=== PATIENT | female | born 1950 | race Caucasian/White ===

== ENCOUNTER → 2017-08-26 | Outpatient (CLI) | payer BC ==
[~2017-08-26] MED LIST: HYDR25TA9 PO; IBUP200C9 PO; LOSA50TA6 PO; PROG200C2 PO; TEST1.25 TD
--- NOTE | 2017-08-27 14:16 | KCIC ---
DATE: 08/26/2017 EXAM: MAMMO ADIEL SCREENING BILATERAL HISTORY: Routine screening COMPARISON: 08/23/2016 FINDINGS: Breast Density: SCATTERED The breast parenchyma shows scattered fibroglandular densities. Breast parenchyma level B. Small asymmetry identified in the left outer breast at around 4:00 best seen on the cc view and left inner breast best seen on the MLO view at around 10:00 position anteriorly. IMPRESSION: Small asymmetries identified in the left outer and left inner breast. Recommend ultrasound left breast. BI-RADS CATEGORY: 0 INCOMPLETE: NEEDS ADDITIONAL IMAGING EVALUATION AND/OR PRIOR MAMMOGRAMS FOR COMPARISON. RECOMMENDED FOLLOW-UP: ADD ADDITIONAL IMAGING PQRS compliance statement: Patient information was entered into a reminder system with a target due date immediate recall for the next mammogram. Mammography is a sensitive method for finding small breast cancers, but it does not detect them all and is not a substitute for careful clinical examination. A negative mammogram does not negate a clinically suspicious finding and should not result in delay in biopsying a clinically suspicious abnormality. "Our facility is accredited by the [employer] Mammography [employer]."
== END | disposition home or self-care (01) ==
LOC: KCIC MAMMO 14:56
PROVIDERS: ATTEND Internal Medicine
DX: Z12.31 Encounter for screening mammogram for malignant neoplasm of breast (principal)
CPT/HCPCS: 77063; G0202; 77067

== ENCOUNTER → 2017-09-02 | Outpatient (CLI) | payer BC ==
--- NOTE | 2017-09-02 13:48 | RAD ---
Ultrasound of the left breast Indication: Callback for abnormality seen on screening mammogram from 08/26/2017 Technique: Grayscale and color Doppler ultrasound images of the left breast from 3:00 position 2 12:00 position. Comparison: Previous screening mammogram from 08/26/2017 Findings: There are no solid or cystic lesions in the breast from 3:00 position to 12:00 position that corresponds to previously seen mammographic abnormality.. Dense fibroglandular tissues noted. Impression: No solid or cystic lesions in the imaged left breast. Previously seen mammographic abnormality may represent small interparenchymal lymph nodes not seen on today's study. Left breast ultrasound follow-up in 6 months recommended BI-RADS 3: Probably benign. Follow-up left breast ultrasound 6 months.
== END | disposition home or self-care (01) ==
LOC: KCIC US 12:11
PROVIDERS: ATTEND Internal Medicine
DX: R92.8 Other abnormal and inconclusive findings on diagnostic imaging of breast (principal)
CPT/HCPCS: 76641

== ENCOUNTER → 2018-03-03 | Outpatient (CLI) | payer BC | END | disposition home or self-care (01) | LOC: KCIC US 11:12 | DX: N63.20 Unspecified lump in the left breast, unspecified quadrant (principal) | CPT/HCPCS: 76641; 77065; G0279 ==

== ENCOUNTER → 2018-08-28 | Outpatient (CLI) | payer BC ==
[~2018-08-28] MED LIST changes: -LOSA50TA6 PO; +LOSA50TA7 PO
--- NOTE | 2018-08-28 14:08 | KCIC ---
Bilateral diagnostic digital mammograms with 3D Tomosynthesis: Reason for examination: Follow-up left breast nodule. Comparison is made to previous studies dated 03/03/2018 and 08/26/2017. Bilateral mammograms in CC and oblique projections were obtained with 2-D imaging and 3-D tomosynthesis imaging on a Siemens Inspiration unit and reviewed on the workstation. Interpretation was made with the benefit of CAD. The skin and nipples show no abnormalities. No abnormal axillary lymph nodes are seen. The breast parenchyma shows scattered fibroglandular density. (Breast density: Category B.) There continues to be a small nodular parenchymal density at approximately the 4:00 B position of the left breast which appears to be stable. There is also some nodularity suggested at the 6:00 B position of the right breast and 2:00 B position of the right breast. This is unchanged. There are no new dominant masses, suspicious calcifications or architectural distortions. Impression: Nodular asymmetries bilaterally without definite change. Ultrasound to follow. BI-RADS Category 0: Incomplete. Needs additional imaging evaluation. Bilateral breast ultrasound: Comparison is made to previous studies of the left breast dated 03/03/2018 and 09/02/2017. There is a small 6.5 mm fibrocystic lesion in the left breast at the 4:00 position 4 cm from the nipple which would appear to correspond with the area of mammographic concern. No other cystic or solid lesions are seen in the left breast. No abnormal appearing lymph nodes are seen in the left axilla. There is a small hypoechoic 4.4 mm fibrocystic type lesion at the 2:00 position 4.5 cm from the nipple. There is a small 4 mm fibrocystic lesion at the 6:00 position 6 cm from the nipple. No other cystic or solid lesions are seen. No abnormal appearing lymph nodes are seen in the right axilla. IMPRESSION: Benign-appearing fibrocystic type lesions at the 4:00 B position of the left breast and at the 2:00 B and 6:00 B positions of the right breast. Recommend 6 month follow-up with ultrasound. BI-RADS Category 3: Probably Benign. "Our facility is accredited by the [employer] Mammography Program." This patient's information has been entered into a reminder system for the patient to be notified with the results of her examination and a target date for the next mammogram. Electronically signed by: Karma Warner MD (08/28/2018 2:05 PM) [id number]
== END | disposition home or self-care (01) ==
LOC: KCIC MAMMO 08:39
PROVIDERS: ATTEND Internal Medicine
DX: N63.23 Unspecified lump in the left breast, lower outer quadrant (principal); N63.14 Unspecified lump in the right breast, lower inner quadrant
CPT/HCPCS: 76641; 77066; G0279; 77062

== ENCOUNTER → 2019-07-23 | Outpatient (CLI) | payer MEDICARE, OTHER ==
[~2019-07-23] MED LIST changes: +HYDR-2145 PO; -HYDR25TA9 PO; +LOSA-73 PO; -LOSA50TA7 PO; +PROG200C10 PO; -PROG200C2 PO
--- NOTE | 2019-07-23 12:26 | KCIC ---
Bilateral diagnostic digital mammograms with 3-D tomosynthesis: Reason for examination: Follow-up nodules. Comparison is made to previous studies dated back to 08/26/2017. Bilateral mammograms in CC and oblique projections were obtained with 2-D imaging and 3-D tomosynthesis imaging on a Siemens Inspiration unit and reviewed on the workstation. Interpretation was made with the benefit of CAD. The skin and nipples show no abnormalities. No abnormal axillary lymph nodes are seen. The breast parenchyma shows scattered fatty and fibroglandular density. (Breast density: Category B.) The parenchymal densities appear to be unchanged when compared to previous exam. Further evaluation with ultrasound however will follow. There are no suspicious calcifications or architectural distortion. Impression: Continued presence of small parenchymal densities without interval change. BI-RAD Category 0: Incomplete. Needs additional imaging evaluation. Bilateral breast ultrasound: Comparison is made to previous study dated 08/28/2018. Bilateral whole breast ultrasound including evaluation of all 4 quadrants and the retroareolar and axillary regions of both breasts was performed. The right breast continues to show small 4.2 mm nodule at the 2:00 position 4.5 cm from the nipple which is stable. No other focal lesions are seen in the right breast. No abnormal appearing lymph nodes are seen in the right axilla. The left breast continues to show small 5.6 mm fibrocystic lesion at the 4:00 position 4 cm from the nipple which is stable. There is also a small 3.9 mm fibrocystic type lesion in the 10:00 position 4 cm from the nipple. No suspicious lesions are seen. No abnormal appearing lymph nodes are seen in the left axilla. IMPRESSION: Small benign-appearing fibrocystic type lesions bilaterally. No suspicious abnormality seen. Recommend 6 month follow-up with ultrasound. BI-RADS Category 3: Probably Benign. "Our facility is accredited by the [employer] Mammography Program." This patient's information has been entered into a reminder system for the patient to be notified with the results of her examination and a target date for the next mammogram. Electronically signed by: Karma Warner MD (07/23/2019 12:23 PM) [id number]
== END | disposition home or self-care (01) ==
LOC: KCIC MAMMO 08:39
PROVIDERS: ATTEND Internal Medicine
DX: N63.12 Unspecified lump in the right breast, upper inner quadrant (principal); N64.89 Other specified disorders of breast
CPT/HCPCS: 76641; 77066; G0279; 77062

== ENCOUNTER → 2020-01-26 | Outpatient (CLI) | payer MEDICARE, OTHER ==
--- NOTE | 2020-01-26 13:36 | KCIC ---
EXAM: Bilateral breast sonogram. HISTORY: 69-year-old female presents for evaluation of small lesions within both breasts demonstrated on prior sonograms dated 07/23/2019 and 07/28/2018 and 03/03/2018. TECHNIQUE: Sonographic imaging of both breasts and clinical 4 quadrants and the retroareolar regions was performed. COMPARISON: Sonograms dated 07/23/2019, 07/28/2018 and 03/03/2018. FINDINGS: Sonographic imaging of the right breast demonstrates an oval circumscribed hypoechoic lesion measuring 5 mm at the 2:00 position 4.5 cm from the nipple. This is not signally changed when allowing for differences in measurement technique. No additional lesion is seen within the right breast. Sonographic imaging of the left breast demonstrates a hypoechoic lesion with slight indistinct margins at the 10:00 position 4 cm the nipple measuring 5 mm in maximum dimension, minimally decreased in size compared to the prior exam when allowing for differences in measurement technique. There is a similar-appearing hypoechoic lesion with slight irregular margins within the 10:00 position 4 cm from the nipple measuring 5 mm, minimally increased compared to the prior study with allowing for differences in imaging technique. No new lesion is seen. IMPRESSION: 1. Tiny hypoechoic lesions within both breasts, stable or minimally changed compared to the most recent comparison study. The multiplicity and imaging appearance favors benign fibrocystic lesions. However, given slight indistinct margins of the lesions on the left, continued follow-up to confirm a two-year course of stability is recommended. 2. BI-RADS Category 3: Probably benign finding(s). Short term follow up with a bilateral breast sonogram in 6 months is recommended. This follow up interval corresponds with a previously established bilateral mammography interval. Electronically signed by: Marybeth Fleming MD (01/26/2020 1:33 PM) [email or web address]
== END ==
LOC: KCIC US 12:51
PROVIDERS: ATTEND Internal Medicine
DX: N60.12 Diffuse cystic mastopathy of left breast (principal); N60.11 Diffuse cystic mastopathy of right breast; R92.2 Inconclusive mammogram
CPT/HCPCS: 76641